=== PATIENT | male | born 1985 | race Caucasian/White ===

== ENCOUNTER 2020-07-08 19:17 | Emergency (ER) | payer OTHER ==
[2020-07-08 19:34] VITALS: BP 154/85; TEMP 99.9; BMI 68.7
[2020-07-08 20:18] VITALS: PULSE 89
== END 2020-07-08 21:23 | disposition home or self-care (01) ==
LOC: JER 19:17
DX: U07.1 COVID-19 (principal); J18.9 Pneumonia, unspecified organism
CPT/HCPCS: 71046-TC-FY; 99283-25

== ENCOUNTER 2020-07-11 15:49 | Inpatient (IN) | payer OTHER ==
[2020-07-11 16:46] LABS: VENOUS BASE EXCESS 2.1 mmol/L (-2-2); VENOUS O2 SATURATION 86.6 % (70-80); VENOUS PCO2 41.7 mmHg (38-52); VENOUS PH 7.424 (7.310-7.410)
[2020-07-11 16:52] LABS: BASO % 0.4 % (0-2.0); HEMATOCRIT 39.1 % (35.4-49); HEMOGLOBIN 12.9 GM/dL (11.7-16.9); INR 1.31 (0.83-1.09); LYMPH % 22.1 % (8-40); MCH 27.4 pg (25.7-33.7); MEAN CELL VOLUME 82.8 fl (80-96); MEAN PLT VOLUME 9.1 fl (7.5-11.1); MONO % 7.2 % (3.8-10.2); NEUT % 70.3 % (42.8-82.8); PLATELET COUNT 235 K/MM3 (134-434); PROTHROMBIN TIME (PATIENT) 15.7 SEC (9.7-13.0); RBC 4.72 M/mm3 (4.00-5.60); RDW 14.9 % (11.9-15.9); WHITE BLOOD COUNT 4.1 K/mm3 (4.0-10.0)
[2020-07-11 17:03] LABS: CHLORIDE 97 mmol/L (98-107); POTASSIUM 4.3 mmol/L (3.5-5.1); SODIUM 132 mmol/L (136-145)
[2020-07-11 17:04] LABS: ANION GAP 6 MMOL/L (8-16); BLOOD UREA NITROGEN 8.7 mg/dL (7-18); CALCIUM 8.4 mg/dL (8.5-10.1); CO2 29 mmol/L (21-32); GLUCOSE,RANDOM 120 mg/dL (74-106)
[2020-07-11 17:08] LABS: CREATININE 1.2 mg/dL (0.55-1.3); SGOT/AST 74 U/L (15-37); SGPT/ALT 69 U/L (13-61)
[2020-07-11 17:09] LABS: BILIRUBIN,TOTAL 0.4 mg/dL (0.2-1); TOT PROT 7.4 g/dl (6.4-8.2)
[2020-07-11 17:10] LABS: ALK PHOS 57 U/L (45-117)
[2020-07-11] MEDS ORDERED: DOXYCYCLINE INJECTION 100 MG in DEXTROSE 5%-WATER - 100 ML IVPB ONE (18:02)
[2020-07-11] MEDS ORDERED: DOXYCYCLINE HYCLATE 100 MG VIAL ONE ×2 (18:13→18:17)
[2020-07-11] MEDS ORDERED: ACETAMINOPHEN 325 MG TABLET (FP) ONE (23:21)
[2020-07-11] MEDS: ACETAMINOPHEN 325 MG TABLET (FP) PO PRN (23:30)
[2020-07-12] MEDS ORDERED: ASCORBIC ACID 500 MG TABLET (FP) ONE ×2 (00:02→09:56)
[2020-07-12] MEDS ORDERED: DEXAMETHASONE SOD PHOSPHATE 10 MG/1 ML VIAL ONE ×2 (00:03→09:56)
[2020-07-12] MEDS ORDERED: ZINC SULFATE 220 MG CAPSULE (FP) ONE ×2 (00:03→09:56)
[2020-07-12] MEDS ORDERED: FAMOTIDINE 20 MG TABLET ONE ×2 (00:03→09:56)
[2020-07-12] MEDS: ASCORBIC ACID 500 MG TABLET (FP) PO SCH ×3 (00:13→21:36)
[2020-07-12] MEDS: DEXAMETHASONE SOD PHOSPHATE 4 MG/1 ML VIAL IVPUSH SCH ×2 (00:13→09:58)
[2020-07-12] MEDS: FAMOTIDINE 20 MG TABLET PO SCH ×3 (00:13→21:36)
[2020-07-12] MEDS: ZINC SULFATE 220 MG CAPSULE (FP) PO SCH ×3 (00:13→21:36)
[2020-07-12 06:08] LABS: BASO % 0.1 % (0-2.0); HEMATOCRIT 40.8 % (35.4-49); HEMOGLOBIN 13.5 GM/dL (11.7-16.9); MCH 27.4 pg (25.7-33.7); MCHC 33.2 g/dl (32.0-35.9); MEAN CELL VOLUME 82.5 fl (80-96); MEAN PLT VOLUME 8.3 fl (7.5-11.1); MONO % 5.9 % (3.8-10.2); PLATELET COUNT 237 K/MM3 (134-434); RBC 4.94 M/mm3 (4.00-5.60); RDW 15.4 % (11.9-15.9); WHITE BLOOD COUNT 4.6 K/mm3 (4.0-10.0)
[2020-07-12 06:28] LABS: POTASSIUM 5.4 mmol/L (3.5-5.1)
[2020-07-12 06:30] LABS: BLOOD UREA NITROGEN 14.2 mg/dL (7-18); CALCIUM 8.3 mg/dL (8.5-10.1)
[2020-07-12 06:34] LABS: CREATININE 1.2 mg/dL (0.55-1.3)
[2020-07-12 06:35] LABS: BILIRUBIN,TOTAL 0.4 mg/dL (0.2-1); TOT PROT 7.9 g/dl (6.4-8.2)
[2020-07-12] MEDS ORDERED: ACETAMINOPHEN 325 MG TABLET (FP) ONE (09:56)
[2020-07-12] MEDS ORDERED: ENOXAPARIN NA (PORCINE) 40 MG/0.4 ML DISP.SYRIN SQ ONE (09:57)
[2020-07-12] MEDS: ENOXAPARIN NA (PORCINE) 40 MG/0.4 ML DISP.SYRIN SQ SCH (09:58)
[2020-07-12] MEDS: ACETAMINOPHEN 325 MG TABLET (FP) PO PRN ×2 (09:59→21:36)
[2020-07-12] MEDS ORDERED: DOXYCYCLINE HYCLATE 100 MG VIAL ONE (10:00)
[2020-07-12] MEDS ORDERED: DOXYCYCLINE INJECTION 100 MG in DEXTROSE 5%-WATER 100 ML IVPB SCH (10:00)
[2020-07-12] MEDS: CHOLECALCIFEROL (VIT D3) 5000 UNITS (125 MCG) CAP PO SCH (10:01)
[2020-07-12] MEDS ORDERED: CHOLECALCIFEROL (VIT D3) 1,000 UNIT (25 MCG) TABLET ONE (10:01)
[2020-07-12 10:56] VITALS: BMI 68.1
[2020-07-12] MEDS ORDERED: REMDESIVIR 200 MG in SODIUM CHLORIDE 210 ML IVPB ONE (12:45)
[2020-07-13] MEDS: ZINC SULFATE 220 MG CAPSULE (FP) PO SCH ×2 (10:59→23:07)
[2020-07-13] MEDS: FAMOTIDINE 20 MG TABLET PO SCH ×2 (10:59→23:07)
[2020-07-13] MEDS: DEXAMETHASONE SOD PHOSPHATE 4 MG/1 ML VIAL IVPUSH SCH (10:59)
[2020-07-13] MEDS: ASCORBIC ACID 500 MG TABLET (FP) PO SCH ×2 (11:00→23:07)
[2020-07-13] MEDS: ENOXAPARIN NA (PORCINE) 40 MG/0.4 ML DISP.SYRIN SQ SCH (11:00)
[2020-07-13] MEDS ORDERED: PT OWN MED DRAWER 7, Y5N ONE (11:06)
[2020-07-13] MEDS: CHOLECALCIFEROL (VIT D3) 5000 UNITS (125 MCG) CAP PO SCH (11:07)
[2020-07-13] MEDS: REMDESIVIR 100 MG in SODIUM CHLORIDE 230 ML IVPB SCH (14:21)
[2020-07-14] MEDS ORDERED: PT OWN MED DRAWER 7, Y5N ONE (09:13)
[2020-07-14] MEDS: ENOXAPARIN NA (PORCINE) 40 MG/0.4 ML DISP.SYRIN SQ SCH (09:59)
[2020-07-14] MEDS: ZINC SULFATE 220 MG CAPSULE (FP) PO SCH ×2 (09:59→22:29)
[2020-07-14] MEDS: DEXAMETHASONE SOD PHOSPHATE 4 MG/1 ML VIAL IVPUSH SCH (09:59)
[2020-07-14] MEDS: FAMOTIDINE 20 MG TABLET PO SCH ×2 (09:59→22:28)
[2020-07-14] MEDS: ASCORBIC ACID 500 MG TABLET (FP) PO SCH ×2 (09:59→22:29)
[2020-07-14] MEDS: CHOLECALCIFEROL (VIT D3) 5000 UNITS (125 MCG) CAP PO SCH (09:59)
[2020-07-14] MEDS: REMDESIVIR 100 MG in SODIUM CHLORIDE 230 ML IVPB SCH (11:50)
[2020-07-15] MEDS: DEXAMETHASONE SOD PHOSPHATE 4 MG/1 ML VIAL IVPUSH SCH (10:10)
[2020-07-15] MEDS: ENOXAPARIN NA (PORCINE) 40 MG/0.4 ML DISP.SYRIN SQ SCH (10:10)
[2020-07-15] MEDS: ZINC SULFATE 220 MG CAPSULE (FP) PO SCH ×2 (10:11→22:07)
[2020-07-15] MEDS: FAMOTIDINE 20 MG TABLET PO SCH ×2 (10:11→22:07)
[2020-07-15] MEDS: REMDESIVIR 100 MG in SODIUM CHLORIDE 230 ML IVPB SCH (10:22)
[2020-07-15] MEDS: CHOLECALCIFEROL (VIT D3) 5000 UNITS (125 MCG) CAP PO SCH (10:23)
[2020-07-15] MEDS: ASCORBIC ACID 500 MG TABLET (FP) PO SCH ×2 (10:23→22:07)
[2020-07-16 08:24] LABS: BASO % 0.2 % (0-2.0); HEMATOCRIT 39.3 % (35.4-49); MCH 27.3 pg (25.7-33.7); MCHC 33.1 g/dl (32.0-35.9); MEAN CELL VOLUME 82.5 fl (80-96); MEAN PLT VOLUME 8.6 fl (7.5-11.1); NEUT % 84.8 % (42.8-82.8); PLATELET COUNT 446 K/MM3 (134-434); RBC 4.77 M/mm3 (4.00-5.60); RDW 15.3 % (11.9-15.9); WHITE BLOOD COUNT 10.5 K/mm3 (4.0-10.0)
[2020-07-16 08:37] LABS: POTASSIUM 4.2 mmol/L (3.5-5.1)
[2020-07-16 08:42] LABS: ALBUMIN 2.6 g/dl (3.4-5.0)
[2020-07-16 08:43] LABS: BLOOD UREA NITROGEN 15.1 mg/dL (7-18)
[2020-07-16 08:46] LABS: CREATININE 0.8 mg/dL (0.55-1.3)
[2020-07-16 08:47] LABS: BILIRUBIN,TOTAL 1.2 mg/dL (0.2-1); TOT PROT 6.9 g/dl (6.4-8.2)
[2020-07-16] MEDS: ZINC SULFATE 220 MG CAPSULE (FP) PO SCH ×2 (10:03→22:50)
[2020-07-16] MEDS: FAMOTIDINE 20 MG TABLET PO SCH ×2 (10:03→22:51)
[2020-07-16] MEDS: ENOXAPARIN NA (PORCINE) 40 MG/0.4 ML DISP.SYRIN SQ SCH (10:03)
[2020-07-16] MEDS: ASCORBIC ACID 500 MG TABLET (FP) PO SCH ×2 (10:04→22:51)
[2020-07-16] MEDS: DEXAMETHASONE SOD PHOSPHATE 4 MG/1 ML VIAL IVPUSH SCH (10:04)
[2020-07-16] MEDS: CHOLECALCIFEROL (VIT D3) 5000 UNITS (125 MCG) CAP PO SCH (10:04)
[2020-07-16] MEDS: REMDESIVIR 100 MG in SODIUM CHLORIDE 230 ML IVPB SCH (10:43)
[2020-07-16] MEDS ORDERED: ENOXAPARIN NA (PORCINE) 120 MG/0.8 ML DISP.SYRIN SQ SCH (12:30)
[2020-07-16] MEDS ORDERED: ENOXAPARIN NA (PORCINE) 100 MG/1 ML DISP.SYRIN SQ ONE (22:28)
[2020-07-16] MEDS ORDERED: ENOXAPARIN NA (PORCINE) 30 MG/0.3 ML DISP.SYRIN SQ ONE (22:28)
[2020-07-16] MEDS: ENOXAPARIN 100 MG, ENOXAPARIN 30 MG SQ SCH (22:52)
[2020-07-17] MEDS: ACETAMINOPHEN 325 MG TABLET (FP) PO PRN (07:01)
[2020-07-17] MEDS ORDERED: ENOXAPARIN NA (PORCINE) 100 MG/1 ML DISP.SYRIN SQ ONE ×2 (08:59→21:58)
[2020-07-17] MEDS ORDERED: ENOXAPARIN NA (PORCINE) 30 MG/0.3 ML DISP.SYRIN SQ ONE ×2 (08:59→21:58)
[2020-07-17] MEDS: ENOXAPARIN 100 MG, ENOXAPARIN 30 MG SQ SCH ×2 (09:36→22:11)
[2020-07-17] MEDS: ZINC SULFATE 220 MG CAPSULE (FP) PO SCH ×2 (09:36→22:11)
[2020-07-17] MEDS: FAMOTIDINE 20 MG TABLET PO SCH ×2 (09:36→22:11)
[2020-07-17] MEDS: ASCORBIC ACID 500 MG TABLET (FP) PO SCH ×2 (09:36→22:11)
[2020-07-17] MEDS: DEXAMETHASONE SOD PHOSPHATE 4 MG/1 ML VIAL IVPUSH SCH (09:37)
[2020-07-17] MEDS: CHOLECALCIFEROL (VIT D3) 5000 UNITS (125 MCG) CAP PO SCH (09:37)
[2020-07-17] MEDS: AMINO ACIDS/PROTEIN HYDROLYS 30 ML LIQUID.PKT PO SCH (17:18)
[2020-07-17] MEDS: ALBUTEROL SO4 HFA INHALER IH PRN (22:33)
[2020-07-18] MEDS: ALBUTEROL SO4 HFA INHALER IH PRN ×5 (02:15→21:00)
[2020-07-18] MEDS: ACETAMINOPHEN 325 MG TABLET (FP) PO PRN (05:39)
[2020-07-18] MEDS ORDERED: ENOXAPARIN NA (PORCINE) 30 MG/0.3 ML DISP.SYRIN SQ ONE ×2 (09:18→22:22)
[2020-07-18] MEDS ORDERED: ENOXAPARIN NA (PORCINE) 100 MG/1 ML DISP.SYRIN SQ ONE ×2 (09:18→22:22)
[2020-07-18 09:25] LABS: BASO % 0.1 % (0-2.0); EOS % 0.9 % (0-4.5); HEMATOCRIT 37.9 % (35.4-49); HEMOGLOBIN 12.7 GM/dL (11.7-16.9); LYMPH % 6.1 % (8-40); MCH 27.7 pg (25.7-33.7); MCHC 33.4 g/dl (32.0-35.9); MEAN CELL VOLUME 83.1 fl (80-96); MEAN PLT VOLUME 9.2 fl (7.5-11.1); MONO % 3.7 % (3.8-10.2); NEUT % 89.2 % (42.8-82.8); PLATELET COUNT 377 K/MM3 (134-434); RBC 4.56 M/mm3 (4.00-5.60); RDW 15.2 % (11.9-15.9); WHITE BLOOD COUNT 13.3 K/mm3 (4.0-10.0)
[2020-07-18 09:44] LABS: POTASSIUM 4.4 mmol/L (3.5-5.1)
[2020-07-18 09:53] LABS: ALBUMIN 2.4 g/dl (3.4-5.0)
[2020-07-18 09:54] LABS: CALCIUM 8.4 mg/dL (8.5-10.1)
[2020-07-18 09:55] LABS: BILIRUBIN,TOTAL 1.2 mg/dL (0.2-1); TOT PROT 6.9 g/dl (6.4-8.2)
[2020-07-18 09:57] LABS: BLOOD UREA NITROGEN 19.2 mg/dL (7-18)
[2020-07-18] MEDS: AMINO ACIDS/PROTEIN HYDROLYS 30 ML LIQUID.PKT PO SCH ×2 (10:23→16:29)
[2020-07-18] MEDS: ENOXAPARIN 100 MG, ENOXAPARIN 30 MG SQ SCH ×2 (10:23→22:41)
[2020-07-18] MEDS: ASCORBIC ACID 500 MG TABLET (FP) PO SCH ×2 (10:24→22:41)
[2020-07-18] MEDS: FAMOTIDINE 20 MG TABLET PO SCH ×2 (10:24→22:40)
[2020-07-18] MEDS: CHOLECALCIFEROL (VIT D3) 5000 UNITS (125 MCG) CAP PO SCH (10:24)
[2020-07-18] MEDS: DEXAMETHASONE SOD PHOSPHATE 4 MG/1 ML VIAL IVPUSH SCH (10:24)
[2020-07-18] MEDS: ZINC SULFATE 220 MG CAPSULE (FP) PO SCH ×2 (10:24→22:40)
[2020-07-18 22:50] VITALS: BP 126/64; PULSE 108; TEMP 99.5
[2020-07-18] MEDS ORDERED: morphine SULFATE 4 MG/ML VIAL IVPUSH ONE (23:28)
[2020-07-18] MEDS ORDERED: MORPHINE SULFATE 2 MG/ML VIAL ONE (23:29)
[2020-07-19] MEDS ORDERED: FENTANYL NS IVPB 500 MCG/100 ML BAG IVPB ONE (00:09)
[2020-07-19] MEDS ORDERED: PROPOFOL 1,000,000 MCG/100 ML VIAL ONE (00:10)
[2020-07-19] MEDS ORDERED: SODIUM CHLORIDE 0.9% 500 ML INFUS.BAG IV ONE (00:47)
[2020-07-19] MEDS ORDERED: PROPOFOL 1,000,000 MCG/100 ML VIAL IVPB SCH (01:00)
[2020-07-19] MEDS ORDERED: FENTANYL NS IVPB 500 MCG/100 ML BAG IVPB SCH (01:00)
[2020-07-19 01:09] LABS: ARTERIAL BLD GAS O2 SATURATION 48.4 mmHg (95-98); ARTERIAL BLOOD GAS BASE EXCESS -19.6 mmol/L (-2-2); ARTERIAL BLOOD GAS PO2 41.3 mmHg (80-100)
[2020-07-19 01:12] LABS: ALLENS TEST POSITIVE; ARTERIAL BLOOD GAS pH 6.937 (7.350-7.450)
[2020-07-19 01:13] LABS: VENT MODE A/C
[2020-07-19 01:14] LABS: VENT RATE 30
[2020-07-19] MEDS ORDERED: SODIUM BICARBONATE 8.4% 50 MEQ/50 ML DISP.SYRIN IVPUSH ONE (01:14)
[2020-07-19] MEDS ORDERED: ROCURONIUM BROMIDE 50 MG/5 ML VIAL IV ONE (01:27)
[2020-07-19] MEDS ORDERED: MIDAZOLAM IN 0.9 % SOD.CHLORID 1 MG/1 ML PLAST..BAG ONE (01:28)
[2020-07-19] MEDS ORDERED: RAPID SEQUENCE INTUBATION KIT NR ONE (01:29)
[2020-07-19] MEDS ORDERED: VECURONIUM BROMIDE 100 MG/100 ML BAG IVPB SCH (01:30)
[2020-07-19] MEDS ORDERED: MIDAZOLAM 100 MG in SODIUM CHLORIDE 100 ML IVPB SCH (01:30)
[2020-07-19] MEDS ORDERED: MIDAZOLAM IN 0.9 % SOD.CHLORID 100 MG/100 ML PLAST..BAG IVPB SCH (01:45)
[2020-07-19] MEDS ORDERED: EPINEPHrine 1:10,000 (P-F SYR) 1 MG/10 ML DISP.SYRIN ONE (02:02)
== END 2020-07-19 04:05 | disposition expired | DRG 137 ==
LOC: JER 15:49 → JERBED 18:07 → J7W 07-12 10:15 → JICU 07-19 00:19
PROVIDERS: ADMIT Internal Medicine; ATTEND Internal Medicine
PROC: 8E0ZXY6 Isolation (ICD-10-PCS; 2020-07-11)
PROC: XW033E5 Introduction of Remdesivir Anti-infective into Peripheral Vein, Percutaneous Approach, New Technology Group 5 (ICD-10-PCS; 2020-07-12)
PROC: XW13325 Transfusion of Convalescent Plasma (Nonautologous) into Peripheral Vein, Percutaneous Approach, New Technology Group 5 (ICD-10-PCS; 2020-07-13)
PROC: 0CHY7BZ Insertion of Airway into Mouth and Throat, Via Natural or Artificial Opening (ICD-10-PCS; principal; 2020-07-18)
PROC: 5A1935Z Respiratory Ventilation, Less than 24 Consecutive Hours (ICD-10-PCS; 2020-07-18)
DX: U07.1 COVID-19 (principal); J12.82 Pneumonia due to coronavirus disease 2019; J96.01 Acute respiratory failure with hypoxia; R50.9 Fever, unspecified; Z68.44 Body mass index [BMI] 60.0-69.9, adult; E66.01 Morbid (severe) obesity due to excess calories; G47.33 Obstructive sleep apnea (adult) (pediatric); F41.9 Anxiety disorder, unspecified
CPT/HCPCS: 36415; 36430; 36600; 71045-TC-FY; 80053; 82728; 82803; 83615; 84484; 85025; 85379; 85610; 86140; 86850; 86900; 86901; 93005; 93010; 94002; 99285-25; C9399; C9803; P9017; U0003